=== PATIENT | female | born 1975 | race Caucasian/White ===

== ENCOUNTER 2020-11-17 12:19 | Emergency (ER) | payer SELFPAY ==
[2020-11-17 12:30] VITALS: BP 136/83; PULSE 78; RESP 18; TEMP 36.9; O2SAT 100
== END 2020-11-17 13:50 | disposition left against medical advice (07) ==
PROVIDERS: Emergency Provider Emergency Medicine
DX: M79.89 Other specified soft tissue disorders (principal)
CPT/HCPCS: 99281